=== PATIENT | female | born 1950 | race African-American/Black ===

== ENCOUNTER 2017-10-31 15:16 | Inpatient (IN) ==
[2017-10-31] MEDS ORDERED: ONDANSETRON 4 MG/2 ML VIAL IV STA (17:22)
[2017-10-31] MEDS ORDERED: MORPHINE 4 MG/1 ML VIAL IV STA (17:22)
[2017-10-31 17:53] LABS: Basophils # 0.1 10*3/uL (0.0-0.2); Basophils % 0.8 % (0.0-0.8); Eosinophils # 0.1 10*3/uL (0.0-0.87); Eosinophils % 1.3 % (0.00-10.9); Hematocrit 41.7 VOL% (35.7-47.0); Hemoglobin 13.8 GM/DL (12.0-16.0); Immature Granulocytes % 0.4 %; Immature Granulocytes Absolute 0.04 #; Lymphocytes # 1.4 10*3/uL (1.4-4.0); Lymphocytes % 14.3 % (21.3-54.2); Mean Corpuscular HGB Conc 33.1 GM/DL (32-36); Mean Corpuscular Hemoglobin 37 PG (27-34); Mean Corpuscular Volume 111.5 FL (87-102); Mean Platelet Volume 10.1 FL (9.6-12.0); Monocytes # 0.7 10*3/uL (0.11-0.8); Monocytes % 7.1 % (1.7-12.7); Neutrophils # 7.2 10*3/uL (1.4-7.4); Neutrophils % 76.1 % (38.7-73.9); Platelet Count 244 T/CUMM (130-400); Red Blood Count 3.74 MC/CUMM (3.8-5.5); Red Cell Distribution Width 16.6 % (9.3-17.3); White Blood Count 9.5 T/CUMM (4-12)
[2017-10-31 18:26] LABS: Alanine Aminotransferase 15 U/L (13-56); Albumin 2.9 G/DL (3.4-5.0); Alkaline Phosphatase 105 U/L (45-117); Amylase 59 U/L (25-115); Aspartate Amino Transferase 13 U/L (0-37); Bilirubin,Total < 0.39 MG/DL (0.2-1.0); Blood Urea Nitrogen 21 MG/DL (7-18); Calcium 9.3 MG/DL (8.5-10.1); Glucose 108 MG/DL (74-106); Lactic Acid 2.3 MMOL/L (0.4-2.0); Osmolality,Calculated 286.1 MOS/KG (273-304); Potassium 3.3 MMOL/L (3.5-5.1); Sodium 142 MMOL/L (136-145); Total Protein 7.7 G/DL (6.4-8.3)
[2017-10-31] MEDS ORDERED: ONDANSETRON 4 MG/2 ML VIAL IV PRN (19:26)
[2017-10-31] MEDS ORDERED: MORPHINE 4 MG/1 ML VIAL IV PRN (19:26)
[2017-10-31 21:38] LABS: Hypochromasia 1+; Platelet Estimate Normal
[2017-11-01] MEDS ORDERED: SODIUM CHLORIDE 0.9% 500 ML IV ONE (01:46)
[2017-11-01] MEDS: CARVEDILOL 12.5 MG TABLET PO SCH ×3 (02:28→17:14)
[2017-11-01] MEDS: hydrALAZINE 25 MG TABLET PO SCH ×5 (02:28→20:30)
[2017-11-01] MEDS: SODIUM CHLOR 0.45% KCL 20 MEQ 20 MEQ/1,000 ML BAG IV SCH (02:29)
[2017-11-01 05:51] LABS: Basophils # 0.1 10*3/uL (0.0-0.2); Basophils % 0.9 % (0.0-0.8); Eosinophils # 0.2 10*3/uL (0.0-0.87); Eosinophils % 1.9 % (0.00-10.9); Hematocrit 38.1 VOL% (35.7-47.0); Hemoglobin 12.3 GM/DL (12.0-16.0); Immature Granulocytes % 0.5 %; Immature Granulocytes Absolute 0.04 #; Lymphocytes # 1.7 10*3/uL (1.4-4.0); Lymphocytes % 20.9 % (21.3-54.2); Mean Corpuscular HGB Conc 32.3 GM/DL (32-36); Mean Corpuscular Hemoglobin 37 PG (27-34); Mean Corpuscular Volume 114.1 FL (87-102); Mean Platelet Volume 10.2 FL (9.6-12.0); Monocytes # 0.7 10*3/uL (0.11-0.8); Monocytes % 8.5 % (1.7-12.7); Neutrophils # 5.4 10*3/uL (1.4-7.4); Neutrophils % 67.3 % (38.7-73.9); Platelet Count 235 T/CUMM (130-400); Red Blood Count 3.34 MC/CUMM (3.8-5.5); Red Cell Distribution Width 16.5 % (9.3-17.3)
[2017-11-01 06:12] LABS: Macrocytosis 1+
[2017-11-01 06:13] LABS: Hypochromasia 1+; Platelet Estimate Normal
[2017-11-01 06:18] LABS: Albumin 2.5 G/DL (3.4-5.0); Bilirubin,Total 0.5 MG/DL (0.2-1.0); Calcium 8.6 MG/DL (8.5-10.1); Osmolality,Calculated 292.7 MOS/KG (273-304); Potassium 3.8 MMOL/L (3.5-5.1); Total Protein 6.9 G/DL (6.4-8.3)
[2017-11-01] MEDS: CALCIUM ACETATE 667 MG CAPSULE PO SCH (09:39)
[2017-11-01] MEDS: NICOTINE 7 MG/24 HR PATCH TRANSDERM SCH (09:40)
[2017-11-01] MEDS ORDERED: cefOXitin 1,000 MG in SODIUM CHLORIDE 0.9% 100 ML IV SCH (16:00)
[2017-11-01] MEDS: cefOXitin 1,000 MG in SYRINGE 1 EACH IV SCH ×2 (17:15→23:30)
[2017-11-02] MEDS: hydrALAZINE 25 MG TABLET PO SCH ×3 (03:00→20:24)
[2017-11-02 05:40] LABS: Basophils # 0.1 10*3/uL (0.0-0.2); Eosinophils # 0.2 10*3/uL (0.0-0.87); Eosinophils % 2.9 % (0.00-10.9); Hematocrit 37.4 VOL% (35.7-47.0); Hemoglobin 12.2 GM/DL (12.0-16.0); Immature Granulocytes % 0.4 %; Immature Granulocytes Absolute 0.03 #; Lymphocytes # 1.5 10*3/uL (1.4-4.0); Lymphocytes % 21.5 % (21.3-54.2); Mean Corpuscular HGB Conc 32.6 GM/DL (32-36); Mean Corpuscular Hemoglobin 37 PG (27-34); Mean Corpuscular Volume 112.3 FL (87-102); Mean Platelet Volume 10.1 FL (9.6-12.0); Monocytes # 0.5 10*3/uL (0.11-0.8); Monocytes % 7.4 % (1.7-12.7); Neutrophils # 4.6 10*3/uL (1.4-7.4); Neutrophils % 66.8 % (38.7-73.9); Platelet Count 217 T/CUMM (130-400); Red Blood Count 3.33 MC/CUMM (3.8-5.5); Red Cell Distribution Width 16.2 % (9.3-17.3); White Blood Count 6.9 T/CUMM (4-12)
[2017-11-02 06:20] LABS: Atypical Lymphocytes Few; Macrocytosis 3+; Platelet Estimate Normal
[2017-11-02 06:21] LABS: Albumin 2.7 G/DL (3.4-5.0); Bilirubin,Total 0.5 MG/DL (0.2-1.0); Calcium 8.5 MG/DL (8.5-10.1); Osmolality,Calculated 288.3 MOS/KG (273-304); Potassium 4.4 MMOL/L (3.5-5.1); Total Protein 6.5 G/DL (6.4-8.3)
[2017-11-02] MEDS ORDERED: BUPIVACAINE MPF 0.25% /EPI 30 ML VIAL ONE (06:36)
[2017-11-02] MEDS ORDERED: LIDOCAINE 1%/EPI INJ 20 ML VIAL ONE (06:37)
[2017-11-02] MEDS ORDERED: TISSUE ADHESIVE 1 EACH APPLICATOR TOP ONE (06:38)
[2017-11-02] MEDS ORDERED: ALBUTEROL 2.5 MG/3 ML NEB RESP TX ONE (07:10)
[2017-11-02] MEDS: SODIUM CHLORIDE 0.9% 500 ML IV SCH (07:15)
[2017-11-02] MEDS ORDERED: SUGAMMADEX 200 MG/2 ML VIAL IV ONE (08:24)
[2017-11-02] MEDS ORDERED: SEVOFLURANE 1 UNIT/15 MINUTE INH ONE (08:52)
[2017-11-02] MEDS ORDERED: ETOMIDATE 40 MG/20 ML VIAL IV ONE (08:52)
[2017-11-02] MEDS ORDERED: fentaNYL 100 MCG/2 ML VIAL ONE (08:52)
[2017-11-02] MEDS ORDERED: PHENYLEPHRINE 1 MG/10 ML SYRINGE IV ONE (08:52)
[2017-11-02] MEDS ORDERED: ROCURONIUM 100 MG/10 ML VIAL IV ONE (08:53)
[2017-11-02] MEDS ORDERED: HYDROmorphone 2 MG/1 ML VIAL ONE (09:04)
[2017-11-02] MEDS ORDERED: ONDANSETRON 4 MG/2 ML VIAL ONE (09:04)
[2017-11-02] MEDS ORDERED: HYDROmorphone 2 MG/1 ML VIAL IV PRN (09:13)
[2017-11-02] MEDS ORDERED: ONDANSETRON 4 MG/2 ML VIAL IV PRN (09:13)
[2017-11-02] MEDS: CALCIUM ACETATE 667 MG CAPSULE PO SCH (09:35)
[2017-11-02] MEDS: CARVEDILOL 12.5 MG TABLET PO SCH ×2 (09:35→17:46)
[2017-11-02] MEDS: SODIUM CHLOR 0.45% KCL 20 MEQ 20 MEQ/1,000 ML BAG IV SCH (09:36)
[2017-11-02] MEDS ORDERED: ACETAMINOPHEN 1,000 MG/100 ML VIAL IV ONE (14:30)
[2017-11-02] MEDS: cefOXitin 1,000 MG in SYRINGE 1 EACH IV SCH ×2 (15:00→22:56)
[2017-11-02] MEDS: NICOTINE 7 MG/24 HR PATCH TRANSDERM SCH (15:02)
[2017-11-03] MEDS: SODIUM CHLORIDE 0.9% 500 ML IV SCH (03:08)
[2017-11-03] MEDS: hydrALAZINE 25 MG TABLET PO SCH ×2 (03:14→12:34)
[2017-11-03 04:37] LABS: Calcium 8.6 MG/DL (8.5-10.1); Osmolality,Calculated 282.4 MOS/KG (273-304); Potassium 4.3 MMOL/L (3.5-5.1)
[2017-11-03 04:40] LABS: Basophils # 0.1 10*3/uL (0.0-0.2); Basophils % 0.6 % (0.0-0.8); Eosinophils # 0.1 10*3/uL (0.0-0.87); Eosinophils % 1.4 % (0.00-10.9); Hematocrit 38.9 VOL% (35.7-47.0); Hemoglobin 12.4 GM/DL (12.0-16.0); Immature Granulocytes % 0.4 %; Immature Granulocytes Absolute 0.03 #; Lymphocytes # 1.3 10*3/uL (1.4-4.0); Lymphocytes % 15.4 % (21.3-54.2); Mean Corpuscular HGB Conc 31.9 GM/DL (32-36); Mean Corpuscular Hemoglobin 37 PG (27-34); Mean Corpuscular Volume 116.5 FL (87-102); Mean Platelet Volume 10.5 FL (9.6-12.0); Monocytes # 0.6 10*3/uL (0.11-0.8); Monocytes % 6.9 % (1.7-12.7); Neutrophils # 6.3 10*3/uL (1.4-7.4); Neutrophils % 75.3 % (38.7-73.9); Platelet Count 206 T/CUMM (130-400); Red Blood Count 3.34 MC/CUMM (3.8-5.5); Red Cell Distribution Width 16.6 % (9.3-17.3); White Blood Count 8.3 T/CUMM (4-12)
[2017-11-03] MEDS: cefOXitin 1,000 MG in SYRINGE 1 EACH IV SCH (06:15)
[2017-11-03] MEDS: CARVEDILOL 12.5 MG TABLET PO SCH (09:24)
[2017-11-03] MEDS: CALCIUM ACETATE 667 MG CAPSULE PO SCH (09:24)
[2017-11-03] MEDS: NICOTINE 7 MG/24 HR PATCH TRANSDERM SCH (09:24)
[2017-11-03 12:11] VITALS: BP 141/61
== END 2017-11-03 15:55 | disposition home or self-care (01) | DRG 417 ==
LOC: N.ED 15:16 → N.EDINP 15:16 → SUATTDRO 19:26 → N.3E 19:56 → SUATTDRO 11-01 11:55
PROVIDERS: ADMIT Internal Medicine; ATTEND Internal Medicine
PROC: LAPCHOL (2017-11-02 09:35)

== ENCOUNTER 2018-06-10 10:53 | Inpatient (IN) ==
[2018-06-10] MEDS ORDERED: SODIUM CHLORIDE 0.9% 500 ML IV STA (11:13)
[2018-06-10 11:44] LABS: Basophils # 0.1 10*3/uL (0.0-0.2); Basophils % 1.3 % (0.0-0.8); Eosinophils # 0.2 10*3/uL (0.0-0.87); Eosinophils % 2.3 % (0.00-10.9); Hematocrit 50.7 VOL% (35.7-47.0); Hemoglobin 16.7 GM/DL (12.0-16.0); Immature Granulocytes % 0.3 %; Immature Granulocytes Absolute 0.03 #; Lymphocytes # 1.8 10*3/uL (1.4-4.0); Lymphocytes % 20.3 % (21.3-54.2); Mean Corpuscular HGB Conc 32.9 GM/DL (32-36); Mean Corpuscular Hemoglobin 38 PG (27-34); Mean Platelet Volume 10.7 FL (9.6-12.0); Monocytes # 0.7 10*3/uL (0.11-0.8); Monocytes % 7.9 % (1.7-12.7); NRBC # 0.02 10*3/uL; Neutrophils # 5.9 10*3/uL (1.4-7.4); Neutrophils % 67.9 % (38.7-73.9); Platelet Count 297 T/CUMM (130-400); Red Blood Count 4.41 MC/CUMM (3.8-5.5); Red Cell Distribution Width 16.9 % (9.3-17.3); White Blood Count 8.7 T/CUMM (4-12)
[2018-06-10 12:06] LABS: Calcium 9.3 MG/DL (8.5-10.1); Osmolality,Calculated 277.4 MOS/KG (273-304)
[2018-06-10 12:07] LABS: Potassium 6.2 MMOL/L (3.5-5.1)
[2018-06-10] MEDS ORDERED: SODIUM BICARBONATE 50 MEQ/50 ML SYRINGE IV ONE (12:16)
[2018-06-10] MEDS ORDERED: INSULIN REGULAR 100 UNIT/ML ONE (12:16)
[2018-06-10] MEDS ORDERED: SODIUM BICARBONATE 50 MEQ/50 ML VIAL IV STA (12:25)
[2018-06-10] MEDS ORDERED: DEXTROSE 50% 25 GM/50 ML VIAL IV STA (12:25)
[2018-06-10] MEDS ORDERED: INSULIN REGULAR 100 UNIT/ML IV STA (12:26)
[2018-06-10] MEDS ORDERED: ONDANSETRON 4 MG/2 ML VIAL IV PRN (16:54)
[2018-06-11 06:58] LABS: Basophils # 0.1 10*3/uL (0.0-0.2); Basophils % 0.8 % (0.0-0.8); Eosinophils # 0.2 10*3/uL (0.0-0.87); Eosinophils % 1.8 % (0.00-10.9); Hematocrit 44.2 VOL% (35.7-47.0); Immature Granulocytes % 0.5 %; Immature Granulocytes Absolute 0.05 #; Lymphocytes # 1.7 10*3/uL (1.4-4.0); Lymphocytes % 17.7 % (21.3-54.2); Mean Corpuscular HGB Conc 32.6 GM/DL (32-36); Mean Corpuscular Hemoglobin 38 PG (27-34); Mean Corpuscular Volume 115.7 FL (87-102); Mean Platelet Volume 10.8 FL (9.6-12.0); Monocytes # 0.6 10*3/uL (0.11-0.8); Monocytes % 6.8 % (1.7-12.7); Neutrophils # 6.7 10*3/uL (1.4-7.4); Neutrophils % 72.4 % (38.7-73.9); Platelet Count 268 T/CUMM (130-400); Red Blood Count 3.82 MC/CUMM (3.8-5.5); Red Cell Distribution Width 16.8 % (9.3-17.3); White Blood Count 9.3 T/CUMM (4-12)
[2018-06-11 06:59] LABS: Hemoglobin 14.4 GM/DL (12.0-16.0)
[2018-06-11 07:12] LABS: Hypochromasia 1+; Target Cells Few
[2018-06-11 07:13] LABS: Macrocytosis 1+; Platelet Estimate Normal
[2018-06-11 07:27] LABS: Calcium 8.8 MG/DL (8.5-10.1); Osmolality,Calculated 290.7 MOS/KG (273-304); Risk Ratio 4.43; Thyroid Stimulating Hormone 1.09 uIU/ml (0.358-3.74)
[2018-06-11] MEDS ORDERED: CARVEDILOL 12.5 MG TABLET PO SCH (08:00)
[2018-06-11] MEDS: PANTOPRAZOLE 40 MG TABLET PO SCH (09:10)
[2018-06-11] MEDS: ACETAMINOPHEN 325 MG TABLET PO PRN ×2 (10:03→16:41)
[2018-06-11] MEDS ORDERED: SODIUM CHLORIDE 0.9% 250 ML IV ONE (11:26)
[2018-06-12 07:29] LABS: Basophils # 0.1 10*3/uL (0.0-0.2); Eosinophils # 0.2 10*3/uL (0.0-0.87); Eosinophils % 2.2 % (0.00-10.9); Hematocrit 42.5 VOL% (35.7-47.0); Hemoglobin 13.8 GM/DL (12.0-16.0); Immature Granulocytes % 0.4 %; Immature Granulocytes Absolute 0.03 #; Lymphocytes # 1.4 10*3/uL (1.4-4.0); Lymphocytes % 17.2 % (21.3-54.2); Mean Corpuscular HGB Conc 32.5 GM/DL (32-36); Mean Corpuscular Hemoglobin 38 PG (27-34); Mean Corpuscular Volume 118.1 FL (87-102); Mean Platelet Volume 10.8 FL (9.6-12.0); Monocytes # 0.7 10*3/uL (0.11-0.8); Monocytes % 8.3 % (1.7-12.7); Neutrophils # 5.6 10*3/uL (1.4-7.4); Neutrophils % 70.9 % (38.7-73.9); Platelet Count 239 T/CUMM (130-400); Red Cell Distribution Width 16.9 % (9.3-17.3); White Blood Count 7.9 T/CUMM (4-12)
[2018-06-12 07:49] LABS: Osmolality,Calculated 292.7 MOS/KG (273-304); Potassium 3.7 MMOL/L (3.5-5.1)
[2018-06-12] MEDS: PANTOPRAZOLE 40 MG TABLET PO SCH (08:17)
[2018-06-12] MEDS ORDERED: HYDROmorphone 2 MG/1 ML VIAL ONE (11:58)
[2018-06-12] MEDS ORDERED: DEXTROSE 50% 25 GM/50 ML VIAL IV ONE ×2 (11:58→12:27)
[2018-06-12] MEDS: SODIUM CHLORIDE 0.9% 250 ML IV SCH (12:00)
[2018-06-12] MEDS ORDERED: HEPARIN 5,000 UNIT/1 ML VIAL ONE (12:01)
[2018-06-12] MEDS ORDERED: ceFAZolin 1,000 MG VIAL ONE (12:01)
[2018-06-12] MEDS ORDERED: BUPIVACAINE 0.25% /EPI 10 ML VIAL ONE (12:01)
[2018-06-12] MEDS ORDERED: THROMBIN TOPICAL (RECOMBINANT) 5,000 UNIT VIAL TOP ONE (12:01)
[2018-06-12] MEDS ORDERED: LIDOCAINE 1%/EPI INJ 20 ML VIAL ONE (12:01)
[2018-06-12] MEDS ORDERED: CLINDAMYCIN INJ 50 ML IV ONE (13:04)
[2018-06-12] MEDS ORDERED: MIDAZOLAM 2 MG/2 ML VIAL ONE (13:45)
[2018-06-12] MEDS ORDERED: fentaNYL 100 MCG/2 ML VIAL ONE (13:46)
[2018-06-12] MEDS ORDERED: KETAMINE 500 MG/10 ML VIAL ONE (13:46)
[2018-06-12] MEDS ORDERED: SODIUM CHLORIDE 0.9% 250 ML IV ONE (13:47)
[2018-06-12] MEDS ORDERED: PROPOFOL 200 MG/20 ML VIAL IV ONE (13:47)
[2018-06-12] MEDS: ACETAMINOPHEN 325 MG TABLET PO PRN (17:10)
[2018-06-12] MEDS ORDERED: HEPARIN 10,000 UNIT/10 ML VIAL IV PRN (17:19)
[2018-06-13] MEDS: ACETAMINOPHEN 325 MG TABLET PO PRN (02:03)
[2018-06-13 07:18] LABS: Basophils # 0.1 10*3/uL (0.0-0.2); Basophils % 1.1 % (0.0-0.8); Eosinophils # 0.2 10*3/uL (0.0-0.87); Eosinophils % 2.1 % (0.00-10.9); Hematocrit 41.6 VOL% (35.7-47.0); Hemoglobin 13.4 GM/DL (12.0-16.0); Immature Granulocytes % 0.3 %; Immature Granulocytes Absolute 0.02 #; Lymphocytes # 1.2 10*3/uL (1.4-4.0); Lymphocytes % 16.6 % (21.3-54.2); Mean Corpuscular HGB Conc 32.2 GM/DL (32-36); Mean Corpuscular Hemoglobin 38 PG (27-34); Mean Corpuscular Volume 118.5 FL (87-102); Mean Platelet Volume 10.3 FL (9.6-12.0); Monocytes # 0.5 10*3/uL (0.11-0.8); Monocytes % 6.5 % (1.7-12.7); Neutrophils # 5.2 10*3/uL (1.4-7.4); Neutrophils % 73.4 % (38.7-73.9); Platelet Count 204 T/CUMM (130-400); Red Blood Count 3.51 MC/CUMM (3.8-5.5); White Blood Count 7.1 T/CUMM (4-12)
[2018-06-13 07:32] LABS: Calcium 8.6 MG/DL (8.5-10.1); Osmolality,Calculated 289.4 MOS/KG (273-304); Potassium 3.5 MMOL/L (3.5-5.1)
[2018-06-13 07:35] LABS: Hypochromasia 1+
[2018-06-13 07:36] LABS: Platelet Estimate Adequate
[2018-06-13] MEDS: PANTOPRAZOLE 40 MG TABLET PO SCH (09:39)
[2018-06-13] MEDS: SODIUM CHLORIDE 0.9% 250 ML IV SCH (09:39)
[2018-06-13 11:27] VITALS: BP 128/50
== END 2018-06-13 11:50 | disposition home or self-care (01) | DRG 356 ==
LOC: N.ED 10:53 → N.EDINP 16:03 → N.5E 18:46
PROVIDERS: ADMIT Internal Medicine; ATTEND Internal Medicine
PROC: VAVDCFI (2018-06-12 12:39)

== ENCOUNTER 2020-01-29 23:14 | Observation (INO) ==
[2020-01-30] MEDS ORDERED: METHOCARBAMOL 1,000 MG/10 ML VIAL IV STA (01:23)
[2020-01-30 01:33] LABS: Basophils # 0.1 10*3/uL (0.0-0.2); Basophils % 0.4 % (0.0-0.8); Eosinophils # 0.1 10*3/uL (0.0-0.87); Eosinophils % 0.8 % (0.00-10.9); Hemoglobin 14.6 GM/DL (12.0-16.0); Immature Granulocytes % 0.5 %; Immature Granulocytes Absolute 0.06 #; Lymphocytes # 1.9 10*3/uL (1.4-4.0); Mean Corpuscular HGB Conc 31.7 GM/DL (32-36); Mean Corpuscular Volume 108.5 FL (87-102); Mean Platelet Volume 10.1 FL (9.6-12.0); Monocytes % 5.9 % (1.7-12.7); Neutrophils % 77.4 % (38.7-73.9); Platelet Count 242 T/CUMM (130-400); Red Blood Count 4.24 MC/CUMM (3.8-5.5); Red Cell Distribution Width 18.5 % (9.3-17.3); White Blood Count 12.4 T/CUMM (4-12)
[2020-01-30 01:48] LABS: PT Patient Result 11.1 SECS (9.8-11.9)
[2020-01-30 01:54] LABS: Alanine Aminotransferase 14 U/L (13-56); Albumin 3.3 G/DL (3.4-5.0); Alkaline Phosphatase 73 U/L (45-117); Amylase 77 U/L (25-115); Aspartate Amino Transferase 11 U/L (0-37); Blood Urea Nitrogen 35 MG/DL (7-18); Estimated Glom Filtration Rate 5 ML/MIN; Glucose 122 MG/DL (74-106); Osmolality,Calculated 289.3 MOS/KG (273-304); Total Protein 8.5 G/DL (6.4-8.3); Troponin I < 0.015 NG/ML (0.00-0.045)
[2020-01-30] MEDS ORDERED: DEXAMETHASONE 4 MG/1 ML VIAL IV STA (04:07)
[2020-01-30] MEDS ORDERED: cefTRIAXone 1,000 MG in SODIUM CHLORIDE 0.9% 100 ML IV STA (04:07)
[2020-01-30] MEDS ORDERED: GLUCAGON 1 MG VIAL IM PRN (05:27)
[2020-01-30] MEDS ORDERED: DEXTROSE 50% 25 GM/50 ML VIAL IV PRN (05:27)
[2020-01-30] MEDS ORDERED: ONDANSETRON 4 MG/2 ML VIAL IV PRN (05:27)
[2020-01-30] MEDS ORDERED: PIPERACILLIN/TAZOBACTAM 2,250 MG in SODIUM CHLORIDE 0.9% 100 ML IV SCH (07:30)
[2020-01-30] MEDS: PIPERACILLIN/TAZOBACTAM 3,375 MG in SODIUM CHLORIDE 0.9% 100 ML IV SCH ×2 (09:50→20:31)
[2020-01-30 11:48] LABS: ABG Base Excess 2.3 MMOL/L (-2.5-2.5); ABG HCO3 26.4 MMOL/L (20-26); ABG Oxygen Saturation 97.8 % (95-100); ABG PCO2 44.5 MM HG (35-48); ABG PH 7.401 (7.35-7.45); ABG TCO2 23.9 MMOL/L (23-27)
[2020-01-30 12:34] LABS: Folate 3.7 NG/ML (5.4-24.0)
[2020-01-30] MEDS: HEPARIN 5,000 UNIT/1 ML VIAL SUBCUT SCH (20:32)
[2020-01-31] MEDS: ACETAMINOPHEN 325 MG TABLET PO PRN ×2 (00:21→14:08)
[2020-01-31 05:17] LABS: Basophils % 0.3 % (0.0-0.8); Eosinophils % 0.2 % (0.00-10.9); Hemoglobin 12.9 GM/DL (12.0-16.0); Immature Granulocytes % 0.5 %; Immature Granulocytes Absolute 0.06 #; Lymphocytes # 1.5 10*3/uL (1.4-4.0); Lymphocytes % 12.3 % (21.3-54.2); Mean Corpuscular HGB Conc 31.5 GM/DL (32-36); Mean Corpuscular Volume 105.9 FL (87-102); Mean Platelet Volume 10.3 FL (9.6-12.0); Monocytes % 7.7 % (1.7-12.7); Platelet Count 242 T/CUMM (130-400); Red Blood Count 3.87 MC/CUMM (3.8-5.5); Red Cell Distribution Width 18.2 % (9.3-17.3); White Blood Count 11.8 T/CUMM (4-12)
[2020-01-31 06:04] LABS: Calcium 10.3 MG/DL (8.5-10.1); Osmolality,Calculated 287.3 MOS/KG (273-304)
[2020-01-31] MEDS: HEPARIN 5,000 UNIT/1 ML VIAL SUBCUT SCH ×2 (09:59→20:32)
[2020-01-31] MEDS: FOLIC ACID 1 MG TABLET PO SCH (09:59)
[2020-01-31] MEDS: PIPERACILLIN/TAZOBACTAM 3,375 MG in SODIUM CHLORIDE 0.9% 100 ML IV SCH ×2 (09:59→20:32)
[2020-02-01 05:43] LABS: Basophils # 0.1 10*3/uL (0.0-0.2); Basophils % 1.2 % (0.0-0.8); Eosinophils # 0.1 10*3/uL (0.0-0.87); Eosinophils % 0.9 % (0.00-10.9); Hematocrit 39.3 VOL% (35.7-47.0); Hemoglobin 12.6 GM/DL (12.0-16.0); Immature Granulocytes % 1.6 %; Immature Granulocytes Absolute 0.12 #; Lymphocytes # 1.3 10*3/uL (1.4-4.0); Mean Corpuscular HGB Conc 32.1 GM/DL (32-36); Mean Corpuscular Volume 107.1 FL (87-102); Mean Platelet Volume 10.2 FL (9.6-12.0); Monocytes % 9.7 % (1.7-12.7); Neutrophils % 68.6 % (38.7-73.9); Platelet Count 253 T/CUMM (130-400); Red Blood Count 3.67 MC/CUMM (3.8-5.5); Red Cell Distribution Width 18.2 % (9.3-17.3); White Blood Count 7.5 T/CUMM (4-12)
[2020-02-01 07:57] VITALS: BP 130/49
[2020-02-01] MEDS: HEPARIN 5,000 UNIT/1 ML VIAL SUBCUT SCH (09:33)
[2020-02-01] MEDS: FOLIC ACID 1 MG TABLET PO SCH (09:33)
[2020-02-01] MEDS: PIPERACILLIN/TAZOBACTAM 3,375 MG in SODIUM CHLORIDE 0.9% 100 ML IV SCH (09:33)
== END 2020-02-01 13:50 | disposition home or self-care (01) ==
LOC: N.EDINP 23:14 → N.ED 23:14 → N.EDINP 01-30 06:40 → N.3E 01-30 06:58
PROVIDERS: ADMIT Internal Medicine; ATTEND Internal Medicine

== ENCOUNTER 2021-06-16 13:35 | Inpatient (IN) ==
[2021-06-16] MEDS ORDERED: cefTRIAXone 1,000 MG in SODIUM CHLORIDE 0.9% 100 ML IV STA (14:13)
[2021-06-16 15:00] LABS: Basophils % 0.1 % (0.0-0.8); Hemoglobin 11.4 GM/DL (12.0-16.0); Immature Granulocytes % 1.4 %; Immature Granulocytes Absolute 0.18 #; Lymphocytes # 0.5 10*3/uL (1.4-4.0); Lymphocytes % 3.6 % (21.3-54.2); Mean Corpuscular HGB Conc 31.7 GM/DL (32-36); Mean Corpuscular Volume 105.9 FL (87-102); Mean Platelet Volume 10.1 FL (9.6-12.0); Monocytes % 2.2 % (1.7-12.7); Neutrophils % 92.7 % (38.7-73.9); Platelet Count 287 T/CUMM (130-400); Red Cell Distribution Width 16.9 % (9.3-17.3); White Blood Count 12.9 T/CUMM (4-12)
[2021-06-16 15:29] LABS: Alanine Aminotransferase 13 U/L (13-56); Albumin 2.4 G/DL (3.4-5.0); Alkaline Phosphatase 77 U/L (45-117); Aspartate Amino Transferase 39 U/L (0-37); Blood Urea Nitrogen 40 MG/DL (7-18); Calcium 8.9 MG/DL (8.5-10.1); Carbon Dioxide 30 MMOL/L (21-32); Estimated Glom Filtration Rate 6 ML/MIN; Glucose 142 MG/DL (74-106); Osmolality,Calculated 288.5 MOS/KG (273-304); Sodium 139 MMOL/L (136-145); Total Protein 7.9 G/DL (6.4-8.2)
[2021-06-16 15:34] LABS: Anisocytosis 1+; Band Neutrophils 30 % (0-10); Lymphocytes 3 % (20-55); Macrocytosis 1+; Metamyelocytes 2 %; Platelet Estimate Normal; Segmented Neutrophils 62 % (50-85); Total Cells Counted 100
[2021-06-16] MEDS ORDERED: ONDANSETRON ODT 4 MG TABLET PO PRN (16:30)
[2021-06-16] MEDS ORDERED: GLUCAGON 1 MG VIAL IM PRN ×2 (16:32→16:33)
[2021-06-16] MEDS ORDERED: DEXTROSE 50% 25 GM/50 ML VIAL IV PRN (16:32)
[2021-06-16] MEDS ORDERED: NICOTINE 21 MG/24 HR PATCH TRANSDERM PRN (16:33)
[2021-06-16] MEDS ORDERED: ONDANSETRON 4 MG/2 ML VIAL IV PRN (16:33)
[2021-06-16] MEDS ORDERED: ACETAMINOPHEN 325 MG TABLET PO PRN (16:33)
[2021-06-16] MEDS ORDERED: MELATONIN 3 MG TABLET PO PRN (16:39)
[2021-06-16] MEDS ORDERED: AZITHROMYCIN INJ 500 MG in SODIUM CHLORIDE 0.9% 250 ML IV ONE (16:39)
[2021-06-16] MEDS ORDERED: DEXTROSE 10% 250 ML BAG IV PRN (16:45)
[2021-06-16] MEDS ORDERED: cefTRIAXone 1,000 MG in SODIUM CHLORIDE 0.9% 100 ML IV SCH (17:30)
[2021-06-16] MEDS: SEVELAMER CARBONATE 800 MG TABLET PO SCH (18:20)
[2021-06-16] MEDS: HEPARIN 5,000 UNIT/1 ML VIAL SUBCUT SCH (18:22)
[2021-06-16] MEDS: FAMOTIDINE 20 MG TABLET PO SCH (22:41)
[2021-06-16] MEDS: ASCORBIC ACID 500 MG TABLET PO SCH (22:42)
[2021-06-16] MEDS: INSULIN LISPRO 100 UNIT/ML SUBCUT SCH (22:49)
[2021-06-17 01:25] LABS: Basophils % 0.2 % (0.0-0.8); Hematocrit 33.8 VOL% (35.7-47.0); Hemoglobin 10.9 GM/DL (12.0-16.0); Immature Granulocytes % 0.9 %; Lymphocytes # 0.5 10*3/uL (1.4-4.0); Lymphocytes % 4.8 % (21.3-54.2); Mean Corpuscular HGB Conc 32.2 GM/DL (32-36); Mean Corpuscular Volume 104.3 FL (87-102); Mean Platelet Volume 10.2 FL (9.6-12.0); Monocytes % 3.3 % (1.7-12.7); Neutrophils % 90.8 % (38.7-73.9); Platelet Count 263 T/CUMM (130-400); Red Blood Count 3.24 MC/CUMM (3.8-5.5); Red Cell Distribution Width 16.8 % (9.3-17.3)
[2021-06-17 02:02] LABS: Lymphocytes 9 % (20-55); Platelet Estimate Adequate; Segmented Neutrophils 86 % (50-85); Total Cells Counted 100
[2021-06-17 02:40] LABS: Albumin 2.1 G/DL (3.4-5.0); Bilirubin,Total 0.7 MG/DL (0.20-1.00); Calcium 8.3 MG/DL (8.5-10.1); Osmolality,Calculated 296.1 MOS/KG (273-304); Potassium 4.6 MMOL/L (3.5-5.1); Total Protein 6.2 G/DL (6.4-8.2)
[2021-06-17 02:52] LABS: Ferritin 6343.9 ng/mL (8-252)
[2021-06-17] MEDS: HEPARIN 5,000 UNIT/1 ML VIAL SUBCUT SCH ×2 (05:38→19:14)
[2021-06-17] MEDS: INSULIN LISPRO 100 UNIT/ML SUBCUT SCH ×4 (08:22→22:11)
[2021-06-17] MEDS ORDERED: hydrALAZINE 20 MG/1 ML VIAL IV PRN (08:52)
[2021-06-17] MEDS: DEXAMETHASONE 4 MG/1 ML VIAL IV SCH (09:32)
[2021-06-17] MEDS: AZITHROMYCIN 250 MG TABLET PO SCH (09:33)
[2021-06-17] MEDS: CETIRIZINE 10 MG TABLET PO SCH (09:33)
[2021-06-17] MEDS: SEVELAMER CARBONATE 800 MG TABLET PO SCH ×3 (09:33→19:22)
[2021-06-17] MEDS: CHOLECALCIFEROL 1,000 UNIT TABLET PO SCH (09:33)
[2021-06-17] MEDS: ASCORBIC ACID 500 MG TABLET PO SCH ×2 (09:33→22:10)
[2021-06-17] MEDS: CLOPIDOGREL 75 MG TABLET PO SCH (09:33)
[2021-06-17] MEDS: ZINC GLUCONATE 50 MG TABLET PO SCH (09:33)
[2021-06-17] MEDS: FAMOTIDINE 20 MG TABLET PO SCH ×2 (09:33→22:10)
[2021-06-17] MEDS: SILVER SULFADIAZINE 1% CREAM 25 GM TUBE TOP SCH (09:37)
[2021-06-17] MEDS ORDERED: ALUM/MAG/SIMETH/LIDO VISC 1:1 30 ML BOTTLE PO PRN (12:30)
[2021-06-17] MEDS: cefTRIAXone 1,000 MG in SODIUM CHLORIDE 0.9% 100 ML IV SCH (19:22)
[2021-06-18 05:56] LABS: Basophils # 0.1 10*3/uL (0.0-0.2); Basophils % 0.4 % (0.0-0.8); Eosinophils % 0.1 % (0.00-10.9); Hematocrit 37.7 VOL% (35.7-47.0); Hemoglobin 11.9 GM/DL (12.0-16.0); Immature Granulocytes % 0.7 %; Immature Granulocytes Absolute 0.09 #; Lymphocytes # 0.5 10*3/uL (1.4-4.0); Lymphocytes % 4.1 % (21.3-54.2); Mean Corpuscular HGB Conc 31.6 GM/DL (32-36); Mean Corpuscular Volume 105.9 FL (87-102); Mean Platelet Volume 10.3 FL (9.6-12.0); Monocytes % 2.9 % (1.7-12.7); Neutrophils % 91.8 % (38.7-73.9); Platelet Count 314 T/CUMM (130-400); Red Blood Count 3.56 MC/CUMM (3.8-5.5); White Blood Count 13.1 T/CUMM (4-12)
[2021-06-18] MEDS: HEPARIN 5,000 UNIT/1 ML VIAL SUBCUT SCH ×2 (06:00→16:17)
[2021-06-18 06:24] LABS: Lymphocytes 1 % (20-55); Segmented Neutrophils 97 % (50-85); Total Cells Counted 100
[2021-06-18 06:25] LABS: Microcytosis 1+; Platelet Estimate Adequate
[2021-06-18 06:41] LABS: Calcium 10.2 MG/DL (8.5-10.1); Ferritin 9033.9 ng/mL (8-252); Osmolality,Calculated 278.2 MOS/KG (273-304); Potassium 4.5 MMOL/L (3.5-5.1)
[2021-06-18] MEDS: INSULIN LISPRO 100 UNIT/ML SUBCUT SCH ×4 (08:16→21:10)
[2021-06-18] MEDS: SEVELAMER CARBONATE 800 MG TABLET PO SCH ×3 (08:17→16:16)
[2021-06-18] MEDS: FAMOTIDINE 20 MG TABLET PO SCH ×2 (09:38→21:58)
[2021-06-18] MEDS: ZINC GLUCONATE 50 MG TABLET PO SCH (09:38)
[2021-06-18] MEDS: AZITHROMYCIN 250 MG TABLET PO SCH (09:38)
[2021-06-18] MEDS: ASCORBIC ACID 500 MG TABLET PO SCH ×2 (09:38→21:58)
[2021-06-18] MEDS: CETIRIZINE 10 MG TABLET PO SCH (09:38)
[2021-06-18] MEDS: CLOPIDOGREL 75 MG TABLET PO SCH (09:39)
[2021-06-18] MEDS: CHOLECALCIFEROL 1,000 UNIT TABLET PO SCH (09:39)
[2021-06-18] MEDS: DEXAMETHASONE 4 MG/1 ML VIAL IV SCH ×2 (09:41→22:01)
[2021-06-18] MEDS: cefTRIAXone 1,000 MG in SODIUM CHLORIDE 0.9% 100 ML IV SCH (09:44)
[2021-06-18] MEDS ORDERED: PIPERACILLIN/TAZOBACTAM 3.375 MG in SODIUM CHLORIDE 0.9% 100 ML IV SCH (11:00)
[2021-06-18 11:45] LABS: ABG Base Excess 3.1 MMOL/L (-2.5-2.5); ABG HCO3 27.1 MMOL/L (20-26); ABG Oxygen Saturation 95.5 % (95-100); ABG PCO2 38.7 MM HG (35-48); ABG PH 7.452 (7.35-7.45); ABG PO2 85.4 MM HG (80-95); ABG TCO2 23.9 MMOL/L (23-27)
[2021-06-18] MEDS: SILVER SULFADIAZINE 1% CREAM 25 GM TUBE TOP SCH (11:58)
[2021-06-18] MEDS: PIPERACILLIN/TAZOBACTAM 3,375 MG in SODIUM CHLORIDE 0.9% 100 ML IV SCH (16:38)
[2021-06-19 05:18] LABS: ABG Base Excess 3.7 MMOL/L (-2.5-2.5); ABG HCO3 27.5 MMOL/L (20-26); ABG Oxygen Saturation 86.9 % (95-100); ABG PCO2 41.5 MM HG (35-48); ABG PH 7.441 (7.35-7.45); ABG PO2 58.8 MM HG (80-95); ABG TCO2 25.3 MMOL/L (23-27)
[2021-06-19] MEDS: HEPARIN 5,000 UNIT/1 ML VIAL SUBCUT SCH ×2 (05:48→17:30)
[2021-06-19] MEDS: PIPERACILLIN/TAZOBACTAM 3,375 MG in SODIUM CHLORIDE 0.9% 100 ML IV SCH ×2 (05:48→17:30)
[2021-06-19 06:49] LABS: Basophils % 0.3 % (0.0-0.8); Hematocrit 33.2 VOL% (35.7-47.0); Hemoglobin 10.5 GM/DL (12.0-16.0); Immature Granulocytes % 1.5 %; Immature Granulocytes Absolute 0.15 #; Lymphocytes # 0.4 10*3/uL (1.4-4.0); Lymphocytes % 3.5 % (21.3-54.2); Mean Corpuscular HGB Conc 31.6 GM/DL (32-36); Mean Corpuscular Volume 103.4 FL (87-102); Mean Platelet Volume 10.2 FL (9.6-12.0); Monocytes % 3.4 % (1.7-12.7); NRBC # 0.02 10*3/uL; Neutrophils % 91.3 % (38.7-73.9); Platelet Count 294 T/CUMM (130-400); Red Blood Count 3.21 MC/CUMM (3.8-5.5); Red Cell Distribution Width 16.6 % (9.3-17.3); White Blood Count 10.2 T/CUMM (4-12)
[2021-06-19 07:15] LABS: Lymphocytes 3 % (20-55); Segmented Neutrophils 92 % (50-85); Total Cells Counted 100
[2021-06-19 07:16] LABS: Hypochromia Slight; Microcytosis Slight; Platelet Estimate Adequate
[2021-06-19 07:41] LABS: Alanine Aminotransferase < 9 U/L (13-56); Albumin 1.8 G/DL (3.4-5.0); Alkaline Phosphatase 67 U/L (45-117); Aspartate Amino Transferase 20 U/L (0-37); Blood Urea Nitrogen 69 MG/DL (7-18); Calcium 10.2 MG/DL (8.5-10.1); Carbon Dioxide 26 MMOL/L (21-32); Estimated Glom Filtration Rate 6 ML/MIN; Glucose 133 MG/DL (74-106); Osmolality,Calculated 289.2 MOS/KG (273-304); Potassium 5.2 MMOL/L (3.5-5.1); Sodium 134 MMOL/L (136-145)
[2021-06-19] MEDS: INSULIN LISPRO 100 UNIT/ML SUBCUT SCH ×4 (08:16→21:47)
[2021-06-19] MEDS: CLOPIDOGREL 75 MG TABLET PO SCH (10:46)
[2021-06-19] MEDS: FAMOTIDINE 20 MG TABLET PO SCH ×2 (10:46→21:52)
[2021-06-19] MEDS: SEVELAMER CARBONATE 800 MG TABLET PO SCH ×3 (10:47→17:30)
[2021-06-19] MEDS: ASCORBIC ACID 500 MG TABLET PO SCH ×2 (10:47→21:52)
[2021-06-19] MEDS: CETIRIZINE 10 MG TABLET PO SCH (10:47)
[2021-06-19] MEDS: ZINC GLUCONATE 50 MG TABLET PO SCH (10:47)
[2021-06-19] MEDS: SODIUM ZIRCONIUM CYCLOSILICATE 10 GM PACK PO SCH (10:47)
[2021-06-19] MEDS: CHOLECALCIFEROL 1,000 UNIT TABLET PO SCH (10:47)
[2021-06-19] MEDS: DEXAMETHASONE 4 MG/1 ML VIAL IV SCH ×2 (11:03→21:51)
[2021-06-19] MEDS: AZITHROMYCIN 250 MG TABLET PO SCH (12:05)
[2021-06-19] MEDS: SILVER SULFADIAZINE 1% CREAM 25 GM TUBE TOP SCH (12:38)
[2021-06-19] MEDS: BUDESONIDE/FORMOTEROL 160-4.5 INHALER 6 GM INH SCH (21:52)
[2021-06-20 04:36] LABS: ABG Base Excess 1.5 MMOL/L (-2.5-2.5); ABG HCO3 25.7 MMOL/L (20-26); ABG Oxygen Saturation 93.1 % (95-100); ABG PCO2 39.9 MM HG (35-48); ABG PH 7.421 (7.35-7.45); ABG PO2 76.4 MM HG (80-95); ABG TCO2 23.3 MMOL/L (23-27)
[2021-06-20] MEDS: PIPERACILLIN/TAZOBACTAM 3,375 MG in SODIUM CHLORIDE 0.9% 100 ML IV SCH ×2 (05:45→21:55)
[2021-06-20] MEDS: HEPARIN 5,000 UNIT/1 ML VIAL SUBCUT SCH ×2 (05:45→17:51)
[2021-06-20 06:10] LABS: Basophils % 0.3 % (0.0-0.8); Hematocrit 36.8 VOL% (35.7-47.0); Hemoglobin 11.4 GM/DL (12.0-16.0); Immature Granulocytes % 2.3 %; Immature Granulocytes Absolute 0.25 #; Lymphocytes # 0.5 10*3/uL (1.4-4.0); Lymphocytes % 4.2 % (21.3-54.2); Mean Corpuscular Volume 106.7 FL (87-102); Mean Platelet Volume 10.2 FL (9.6-12.0); Monocytes % 4.5 % (1.7-12.7); NRBC # 0.03 10*3/uL; Neutrophils % 88.7 % (38.7-73.9); Platelet Count 286 T/CUMM (130-400); Red Blood Count 3.45 MC/CUMM (3.8-5.5); Red Cell Distribution Width 17.2 % (9.3-17.3); White Blood Count 10.8 T/CUMM (4-12)
[2021-06-20 06:33] LABS: Band Neutrophils 2 % (0-10); Lymphocytes 3 % (20-55); Segmented Neutrophils 91 % (50-85); Target Cells Slight; Total Cells Counted 100
[2021-06-20 06:34] LABS: Anisocytosis 1+; Macrocytosis 1+; Platelet Estimate Normal
[2021-06-20] MEDS: CHOLECALCIFEROL 1,000 UNIT TABLET PO SCH ×2 (09:00→09:05)
[2021-06-20] MEDS: ZINC GLUCONATE 50 MG TABLET PO SCH ×2 (09:00→09:05)
[2021-06-20] MEDS: CETIRIZINE 10 MG TABLET PO SCH ×2 (09:00→09:05)
[2021-06-20] MEDS: SODIUM ZIRCONIUM CYCLOSILICATE 10 GM PACK PO SCH ×2 (09:00→09:05)
[2021-06-20] MEDS: ASCORBIC ACID 500 MG TABLET PO SCH ×3 (09:00→23:35)
[2021-06-20] MEDS: CLOPIDOGREL 75 MG TABLET PO SCH ×2 (09:00→09:04)
[2021-06-20] MEDS: FAMOTIDINE 20 MG TABLET PO SCH ×3 (09:00→23:35)
[2021-06-20] MEDS: AZITHROMYCIN 250 MG TABLET PO SCH ×2 (09:00→09:05)
[2021-06-20] MEDS: SILVER SULFADIAZINE 1% CREAM 25 GM TUBE TOP SCH (09:00)
[2021-06-20] MEDS: BUDESONIDE/FORMOTEROL 160-4.5 INHALER 6 GM INH SCH ×3 (09:00→23:37)
[2021-06-20] MEDS: SEVELAMER CARBONATE 800 MG TABLET PO SCH ×3 (09:05→17:51)
[2021-06-20] MEDS: DEXAMETHASONE 4 MG/1 ML VIAL IV SCH ×2 (09:05→23:37)
[2021-06-20] MEDS: INSULIN LISPRO 100 UNIT/ML SUBCUT SCH ×3 (09:31→17:51)
[2021-06-20 09:39] LABS: Calcium 9.5 MG/DL (8.5-10.1); Ferritin 10645.7 ng/mL (8-252); Osmolality,Calculated 316.1 MOS/KG (273-304)
[2021-06-20 09:50] LABS: Potassium 6.5 MMOL/L (3.5-5.1)
[2021-06-20 16:20] VITALS: BP 142/84
[2021-06-20] MEDS ORDERED: NALOXONE 0.4 MG/ML VIAL IV STA (18:13)
[2021-06-20 18:36] LABS: ABG Base Excess -17.3 MMOL/L (-2.5-2.5); ABG HCO3 11.9 MMOL/L (20-26); ABG PCO2 24.4 MM HG (35-48); ABG PO2 82.5 MM HG (80-95); ABG TCO2 8.6 MMOL/L (23-27); Allen Test Positive; Pt O2 Delivery Device Venturi Mask
[2021-06-20 18:38] LABS: ABG PH 7.209 (7.35-7.45)
[2021-06-20] MEDS ORDERED: ROCURONIUM 100 MG/10 ML VIAL IV ONE (19:14)
[2021-06-20] MEDS ORDERED: ETOMIDATE 20 MG/10 ML VIAL IV ONE (19:14)
[2021-06-20 19:24] LABS: Calcium 11.6 MG/DL (8.5-10.1); Osmolality,Calculated 294.2 MOS/KG (273-304); Potassium 5.1 MMOL/L (3.5-5.1)
[2021-06-20] MEDS ORDERED: MIDAZOLAM 2 MG/2 ML VIAL ONE (20:09)
[2021-06-20] MEDS ORDERED: MIDAZOLAM 2 MG/2 ML VIAL IV ONE (20:11)
[2021-06-20] MEDS ORDERED: NOREPINEPHRINE 4 MG/4 ML VIAL IV ONE (20:13)
[2021-06-20] MEDS: NOREPINEPHRINE 8 MG in SODIUM CHLORIDE 0.9% 242 ML IV PRN (20:25)
[2021-06-20] MEDS ORDERED: AZITHROMYCIN INJ 250 MG in SODIUM CHLORIDE 0.9% 250 ML IV SCH (21:00)
[2021-06-20 22:29] LABS: ABG Base Excess -20.4 MMOL/L (-2.5-2.5); ABG HCO3 10.1 MMOL/L (20-26); ABG Oxygen Saturation 98.3 % (95-100); ABG PCO2 26.1 MM HG (35-48); ABG TCO2 7.7 MMOL/L (23-27)
[2021-06-20 22:31] LABS: ABG PH 7.117 (7.35-7.45)
[2021-06-20] MEDS ORDERED: SODIUM BICARBONATE 50 MEQ/50 ML VIAL IV ONE (22:59)
[2021-06-20] MEDS ORDERED: MIDAZOLAM 100 MG in SODIUM CHLORIDE 0.9% 80 ML IV PRN (23:00)
[2021-06-21] MEDS: INSULIN LISPRO 100 UNIT/ML SUBCUT SCH ×3 (00:39→11:35)
[2021-06-21] MEDS ORDERED: NOREPINEPHRINE 4 MG/4 ML VIAL IV ONE ×4 (01:14→08:07)
[2021-06-21 01:42] LABS: ABG Base Excess -21.2 MMOL/L (-2.5-2.5); ABG HCO3 9.5 MMOL/L (20-26); ABG PCO2 25.9 MM HG (35-48); ABG TCO2 7.4 MMOL/L (23-27)
[2021-06-21 01:44] LABS: ABG PH 7.094 (7.35-7.45)
[2021-06-21] MEDS ORDERED: SODIUM BICARBONATE 50 MEQ/50 ML VIAL IV ONE ×5 (01:50→23:30)
[2021-06-21] MEDS ORDERED: SODIUM CHLORIDE 0.9% 1,000 ML IV ONE (01:59)
[2021-06-21 03:32] LABS: ABG Base Excess -18.2 MMOL/L (-2.5-2.5); ABG Oxygen Saturation 98.2 % (95-100); ABG PCO2 35.1 MM HG (35-48); ABG TCO2 10.3 MMOL/L (23-27)
[2021-06-21] MEDS ORDERED: SODIUM BICARB INJ 150 MEQ in STERILE WATER INJ 1,000 ML IV SCH (04:00)
[2021-06-21] MEDS ORDERED: SODIUM BICARB INJ 150 MEQ in STERILE WATER INJ 850 ML IV SCH (04:00)
[2021-06-21 04:05] LABS: Basophils # 0.2 10*3/uL (0.0-0.2); Basophils % 0.9 % (0.0-0.8); Eosinophils % 0.1 % (0.00-10.9); Hematocrit 34.6 VOL% (35.7-47.0); Hemoglobin 10.2 GM/DL (12.0-16.0); Immature Granulocytes % 24.1 %; Immature Granulocytes Absolute 4.45 #; Lymphocytes # 0.8 10*3/uL (1.4-4.0); Lymphocytes % 4.4 % (21.3-54.2); Mean Corpuscular HGB Conc 29.5 GM/DL (32-36); Mean Corpuscular Volume 113.8 FL (87-102); Mean Platelet Volume 11.5 FL (9.6-12.0); Monocytes % 5.4 % (1.7-12.7); Neutrophils % 65.1 % (38.7-73.9); Platelet Count 137 T/CUMM (130-400); Red Blood Count 3.04 MC/CUMM (3.8-5.5); Red Cell Distribution Width 17.8 % (9.3-17.3); White Blood Count 18.5 T/CUMM (4-12)
[2021-06-21] MEDS: PIPERACILLIN/TAZOBACTAM 3,375 MG in SODIUM CHLORIDE 0.9% 100 ML IV SCH (04:09)
[2021-06-21] MEDS: NOREPINEPHRINE 8 MG in SODIUM CHLORIDE 0.9% 242 ML IV PRN ×5 (04:19→08:24)
[2021-06-21 04:28] LABS: Band Neutrophils 4 % (0-10); Eosinophils 1 % (0-10); Lymphocytes 14 % (20-55); Nucleated Red Blood Cells 11 (0-5); Platelet Estimate Adequate; Segmented Neutrophils 73 % (50-85); Total Cells Counted 100
[2021-06-21] MEDS: HEPARIN 5,000 UNIT/1 ML VIAL SUBCUT SCH (04:52)
[2021-06-21] MEDS ORDERED: PHENYLEPHRINE DRIP 40 MG/250 ML PREMIX IV ONE (05:11)
[2021-06-21] MEDS: PHENYLEPHRINE DRIP 40 MG/250 ML PREMIX IV PRN ×3 (05:29→08:30)
[2021-06-21] MEDS ORDERED: SODIUM CHLORIDE 0.9% 1,000 ML IV SCH (05:30)
[2021-06-21] MEDS ORDERED: SODIUM CHLORIDE 0.9% 500 ML IV ONE (06:00)
[2021-06-21 06:16] LABS: ABG Base Excess -15.6 MMOL/L (-2.5-2.5); ABG HCO3 12.4 MMOL/L (20-26); ABG Oxygen Saturation 98.3 % (95-100); ABG PCO2 37.2 MM HG (35-48); ABG TCO2 12.2 MMOL/L (23-27)
[2021-06-21 06:18] LABS: ABG PH 7.136 (7.35-7.45)
[2021-06-21] MEDS ORDERED: CALCIUM CHLORIDE 1,000 MG/10 ML SYRINGE IV ONE (06:56)
[2021-06-21] MEDS ORDERED: DEXTROSE 50% 25 GM/50 ML VIAL IV ONE ×2 (07:34→08:53)
[2021-06-21 08:30] LABS: Blood Urea Nitrogen 75 MG/DL (7-18); Calcium 9.5 MG/DL (8.5-10.1); Carbon Dioxide 22 MMOL/L (21-32); Estimated Glom Filtration Rate 6 ML/MIN; Ferritin 1617.6 ng/mL (8-252); Osmolality,Calculated 323.3 MOS/KG (273-304); Sodium 155 MMOL/L (136-145)
[2021-06-21 08:51] LABS: Glucose 13 MG/DL (74-106); Potassium 9.5 MMOL/L (3.5-5.1)
[2021-06-21] MEDS ORDERED: DEXTROSE 50% 25 GM/50 ML SYRINGE IV ONE (08:52)
[2021-06-21] MEDS ORDERED: PANTOPRAZOLE 40 MG VIAL IV SCH (09:00)
[2021-06-21] MEDS: CLOPIDOGREL 75 MG TABLET PO SCH (09:56)
[2021-06-21] MEDS: SODIUM ZIRCONIUM CYCLOSILICATE 10 GM PACK PO SCH (09:56)
[2021-06-21] MEDS: CHOLECALCIFEROL 1,000 UNIT TABLET PO SCH (09:56)
[2021-06-21] MEDS: SEVELAMER CARBONATE 800 MG TABLET PO SCH ×2 (09:56→11:35)
[2021-06-21] MEDS: ZINC GLUCONATE 50 MG TABLET PO SCH (09:56)
[2021-06-21] MEDS: SILVER SULFADIAZINE 1% CREAM 25 GM TUBE TOP SCH (09:56)
[2021-06-21] MEDS: ASCORBIC ACID 500 MG TABLET PO SCH (09:56)
[2021-06-21] MEDS: CETIRIZINE 10 MG TABLET PO SCH (09:56)
[2021-06-21] MEDS: DEXAMETHASONE 4 MG/1 ML VIAL IV SCH (09:58)
[2021-06-21] MEDS: BUDESONIDE/FORMOTEROL 160-4.5 INHALER 6 GM INH SCH (11:34)
[2021-06-21] MEDS ORDERED: DEXTROSE 10% 500 ML IV SCH (12:00)
== END 2021-06-21 10:14 | disposition expired | DRG 208 ==
LOC: N.ED 13:35 → SUATTDRO 16:32 → N.EDINP 16:32 → N.5E 20:20 → N.ICU 06-20 19:13
PROVIDERS: ADMIT Internal Medicine; ATTEND Internal Medicine